=== PATIENT | female | born 1990 | race Caucasian/White ===

== ENCOUNTER 2022-01-23 20:24 | Outpatient (CLI) | payer OTHER ==
[~2022-01-23] VITALS: Ht 167.6 cm; Wt 76.8 kg
--- NOTE | 2022-01-23 20:30 | NUR ---
PT ARRIVED TO UNIT AMBULATORY WITH COMPLAINTS OF EXCESSIVE MOVEMENT. PT STATES SHE CALLED [facility] CALL [facility] AND WAS TOLD BY SALES INTERN THAT DUE TO COMPLAINTS, SHE DID NOT NEED TO SPEAK WITH THE PHYSICIAN AND NEEDED TO COME DIRECTLY TO THE ER FOR EVALUATION BABY COULD BE IN DISTRESS. PT CHANGED INTO GOWN, ORIENTED TO ROOM, VS OBTAINED, EFM X2 APPLIED. PT DENIES CTX, LOF, OR VAGINAL BLEEDING. NO SVE PERFORMED.
[2022-01-23 21:00] VITALS: BP 111/73; PULSE 96; TEMP 98.1
[2022-01-23] MEDS ORDERED: PRENATAL TABLET PO (21:19)
== END 2022-01-23 22:55 | disposition home or self-care (01) ==
LOC: LDRO 20:24 → EDSEX 20:24 → LDRO 22:55
DX: O26.893 Other specified pregnancy related conditions, third trimester (principal); Z3A.31 31 weeks gestation of pregnancy